=== PATIENT | female | born 1940 | race Hispanic/Latino ===

== ENCOUNTER 2016-12-17 18:14 | Emergency (ER) | payer MEDICARE, BC ==
[2016-12-17 18:22] VITALS: BMI 25.7
[2016-12-17 18:34] LABS: VENOUS BLOOD GAS BASE EXCESS -16.5 mmol/L (0.0-2.0)
[2016-12-17 18:35] LABS: HEMATOCRIT 41.5 % (36.0-48.0); MEAN CELL VOLUME 97.9 fL (80.0-105.0); MEAN CORPUSCULAR HEMOGLOBIN 30.4 pg (25.0-35.0); MEAN CORPUSCULAR HGB CONC 31.1 g/dl (31.0-37.0); MEAN PLATELET VOLUME 11.3 fl (7.0-11.0); PLATELET COUNT 151 10^3/uL (120.0-450.0); RED CELL DISTRIBUTION WIDTH 16.6 % (11.5-14.5); WHITE BLOOD COUNT 13.3 10^3/ul (4.5-11.0)
[2016-12-17 18:36] LABS: VENOUS BLOOD PH 6.91 (7.32-7.43)
[2016-12-17 18:44] LABS: INR 1.1 (0.93-1.08); PARTIAL THROMBOPLASTIN TIME 28.8 Seconds (23.7-30.8)
[2016-12-17 18:47] LABS: ALKALINE PHOSPHATASE 180 U/L (38-133); ALT/SGPT 127 U/L (7-56); AST/SGOT 111 U/L (15-39); BILIRUBIN,TOTAL 0.6 mg/dL (0.2-1.3); BLOOD UREA NITROGEN 29 mg/dL (7-21); CALCIUM 9.9 mg/dL (8.4-10.5); CARBON DIOXIDE 18 mmol/L (21-33); CHLORIDE 100 mmol/L (98-107); GFR AFRICAN-AMERICAN > 60; POTASSIUM 4.2 mmol/L (3.6-5.0); SODIUM 138 mmol/L (132-148); TOTAL PROTEIN 7.3 g/dL (5.8-8.3)
[2016-12-17 18:49] LABS: GLUCOSE,RANDOM 432 mg/dL (70-110)
[2016-12-17 18:50] VITALS: BP 92/31; PULSE 106; RESP 16; O2SAT 77
[2016-12-17 19:03] LABS: ADD MANUAL DIFF? YES
[2016-12-17 19:04] LABS: TROPONIN I < 0.01 ng/mL
[2016-12-17 19:37] LABS: BAND 4 % (0-2); EOSINOPHIL 1 % (0.0-3.0); NEUTROPHIL 55 % (50.0-70.0); NUCLEATED RED BLOOD CELL 2 %; PLATELET ESTIMATE NORMAL (NORMAL)
--- NOTE | 2016-12-17 20:41 | ED PDOC ---
Arrival/HPI - General Chief Complaint: Cardiac Arrest Time Seen by Provider: 12/17/16 18:29 Historian: EMS EM Caveat: Acuity of Condition - History of Present Illness Narrative History of Present Illness (Text): 12/17/16 17:45 A 76 year old female is brought into the emergency department by BLS in cardiac pulmonary arrest. EMS states they were called and upon arrival at the patient house they found her to have agonal respiration. While en route to the emergency department the patient went into cardiac arrest. CPR was started and 1 AED defibrillation was delivered. HPI and ROS limited due to acuity of patient condition. PMD: Dr. Beckman Time/Duration: Prior to Arrival Symptom Onset: Sudden Symptom Course: Unchanged Context: Home Past Medical History - Provider Review Nursing Documentation Reviewed: Yes - Infectious Disease Hx of Infectious Diseases: None - Reproductive Menopause: Yes - Neurological HX Cerebrovascular Accident: Yes - Endocrine/Metabolic Hx Diabetes Mellitus Type 2: Yes - Musculoskeletal/Rheumatological Hx Osteoporosis: Yes - Psychiatric Hx Substance Use: No Family/Social History - Physician Review Nursing Documentation Reviewed: Yes Family/Social History: Unknown Family HX Smoking Status: Never Smoked Hx Alcohol Use: No Hx Substance Use: No Allergies/Home Meds Allergies/Adverse Reactions: Allergies No Known Allergies Allergy (Verified 12/17/16 18:21) Home Medications: Home Meds Medication Instructions Recorded Confirmed Unobtainable 12/17/16 12/17/16 Review of Systems - Review of Systems Systems not reviewed;Unavailable: Acuity of Condition Physical Exam Vital Signs Reviewed: Yes Vital Signs Pulse Resp BP Pulse Ox 12/17/16 18:30 106 H 92/31 L 12/17/16 18:24 84 16 99/53 L 77 L Blood Pressure: Hypotensive Pulse: Pulseless Respiratory Rate: Apneic Appearance: Positive for: Other (cyanotic) Pain Distress: None Mental Status: No: Confused, Agitated - Systems Exam Head: Present: Atraumatic Pupils: Present: Other (fixed and dilated) Respiratory/Chest: Present: Rales (with mechanical ventilation) Cardiovascular: No: Regular Rate and Rhythm, Murmurs, Normal S1, S2 Abdomen: No: Tenderness Skin: Present: Cold, Other (cyanotic) Medical Decision Making ED Course and Treatment: 12/17/16 17:45 Impression: A 76 year old female in cardiac arrest. Upon arrival of patient to the emergency department patient was still in cardiac pulmonary arrest. ACLS protocol started. Patient was intubated. PROCEDURE: INTUBATION Performed by the emergency provider Consent: Discussion of the risks, benefits, and alternatives to the procedure, along with informed consent was precluded by the urgency of the procedure and the patient condition. Timeout: A timeout to verify the correct patient, procedure, and site was performed. Indication: Cardiac arrest Pre-oxygenation: [id number] ETT Size:7.5 Confirmation: Cords directly visualized as tube passed, good bilateral breath sounds, positive CO2 detector color change, tube fogging, adequate chest rise, improving pulse oximetry reading, improved skin color, and absence of gastric sounds,. ETT Secured: The cuff was inflated and the tube was secured appropriately at a distance of 21 cm atthe lip. Post-Procedure: There were no immediate complications. 1 defibrillation was administered during course in the emergency department. After 45 mins down time patient was asystolic and time of was called at 18 :33. Patient two son in the emergency department, who were notified. They state theu would not like an autopsy. Patient's PMD, Dr. Beckman, notified about expiration. See nursing notes for additional/detailed notes. - Critical Care Critical Care Minutes: 60 minutes Critical Care Time: Unstable - Lab Interpretations Lab Results: 12/17/16 18:18 12/17/16 18:18 Lab Results 12/17/16 18:18: pO2 47, VBG pH 6.91 L*, VBG pCO2 88.0 H*, VBG HCO3 17.6 L, VBG Total CO2 20.3 L, VBG O2 Sat (Calc) 65.8 H, VBG Base Excess -16.5 L, VBG Potassium 4.3, Sodium 138.0, Chloride 102.0, Glucose 475 H*, Lactate 10.4 H*, FiO2 21.0, Venous Blood Potassium 4.3 12/17/16 18:18: Sodium 138, Chloride 100, Potassium 4.2, Carbon Dioxide 18 L, Anion Gap 24 H, BUN 29 H, Creatinine 0.8, Est GFR ( Amer) > 60, Est GFR ( Non-Af Amer) > 60, Random Glucose 432 H* D, Calcium 9.9, Total Bilirubin 0.6, AST 111 H, ALT 127 H, Alkaline Phosphatase 180 H, Troponin I < 0.01, Total Protein 7.3, Albumin 3.6, Globulin 3.7, Albumin/Globulin Ratio 1.0 L 12/17/16 18:18: PT 11.9 H, INR 1.10 H, APTT 28.8 12/17/16 18:18: WBC 13.3 H D, RBC 4.24, Hgb 12.9, Hct 41.5, MCV 97.9, MCH 30.4, MCHC 31.1, RDW 16.6 H, Plt Count 151, MPV 11.3 H, Neutrophils % (Manual) 55, Band Neutrophils % 4 H, Lymphocytes % (Manual) 30, Monocytes % (Manual) 10 H, Eosinophils % (Manual) 1, Nucleated RBC % 2, Platelet Evaluation Normal I have reviewed the lab results: Yes - Scribe Statement The provider has reviewed the documentation as recorded by the Maritaibe Destinee Salazar Provider Scribe Attestation: All medical record entries made by the Scribe were at my direction and personally dictated by me. I have reviewed the chart and agree that the record accurately reflects my personal performance of the history, physical exam, medical decision making, and the department course for this patient. I have also personally directed, reviewed, and agree with the discharge instructions and disposition. Disposition/Present on Arrival - Present on Arrival Any Indicators Present on Arrival: No History of DVT/PE: No History of Uncontrolled Diabetes: No Urinary Catheter: No History of Decub. Ulcer: No History Surgical Site Infection Following: None - Disposition Have Diagnosis and Disposition been Completed?: Yes Diagnosis: Cardiac arrest Disposition: WITH WITHOUT AUTOPSY Disposition Time: 18:33 Condition: Referrals: Effie العلي MD [Primary Care Provider] - Follow up with primary
--- NOTE | 2016-12-19 17:22 | CARD ---
APPROVED REPORT EKG Measurement Heart [id number] <Conclusion> Sinus rhythm with high grade AV Block, possibly 2:1 or complete heart block Right bundle branch block Inferior infarct, age undetermined Abnormal ECG
== END 2016-12-17 21:14 ==
LOC: ED 18:14
DX: I46.9 Cardiac arrest, cause unspecified (principal)